=== PATIENT | male | born 1955 | race Caucasian/White ===

== ENCOUNTER 2016-08-10 09:59 | Emergency (ER) | payer BC ==
[2016-08-10] MEDS ORDERED: SODIUM CHLORIDE 0.9% 1,000 ML ONE (10:32)
== END 2016-08-10 13:51 | disposition home or self-care (01) ==
LOC: ER 09:59
CPT/HCPCS: 36415; 70450; 71010; 80053; 82553; 82947; 84484; 85025; 85610; 85730; 93005; 96360